=== PATIENT | female | born 1970 | race Caucasian/White ===

== ENCOUNTER 2018-09-11 18:28 | Emergency (ER) | payer BC ==
[~2018-09-11] VITALS: Ht 167.6 cm; Wt 101.4 kg
[~2018-09-11 18:28] MED LIST: CIPR500T9 PO; DOCU-300 PO; HYDR-5122 PO; METR500T1 PO
[2018-09-11 18:38] VITALS: BP 140/87
--- NOTE | 2018-09-11 18:51 | NUR ---
PATIENT AMBULATED TO BED 5
--- NOTE | 2018-09-11 19:04 | NUR ---
C/O LEFT LOWER QUADRANT PAIN X TODAY. +NAUSEA, DENIES VOMITING, FEVER OR DIARRHEA. PT STATES PAIN IS 8/10. MED HX: C SECTION X 4, DIVERTICULITIS MED: NONE
--- NOTE | 2018-09-11 19:10 | NUR ---
BEDSIDE REPORT RECEIVED FROM SAHIL GORDON. TRANSFER OF CARE AT THIS TIME.
[2018-09-11] MEDS ORDERED: MORPHINE SULFATE 4 MG/ML SYR IVP ONE ×2 (19:55→21:15)
[2018-09-11] MEDS ORDERED: NACL 0.9% 1,000 ML IV ONE (19:55)
[2018-09-11 20:11] LABS: HEMATOCRIT 44.4 % (36-48); HEMOGLOBIN 14.9 g/dL (12.0-16.0); MEAN CORPUSCULAR HEMOGLOBIN 28 pg (27-31); MEAN CORPUSCULAR HGB CONC 34 g/dL (33-37); MEAN CORPUSCULAR VOLUME 83.5 fL (80-94); PLATELET COUNT (AUTO) 203 K/uL (140-450); RED BLOOD CELL COUNT(AUTO) 5.32 MIL/uL (4.20-5.40); RED CELL DISTRIBUTION WIDTH 14.9 % (11.6-13.7); WHITE BLOOD COUNT (AUTO) 17.2 K/uL (4.8-10.8)
[2018-09-11 20:20] LABS: ANION GAP 13.6 (8-16); CARBON DIOXIDE 26.3 mmol/L (21-32); CREATININE 1.1 mg/dL (0.6-1.3); POTASSIUM 3.9 mmol/L (3.5-5.1)
[2018-09-11 20:25] LABS: ALBUMIN 3.6 g/dL (3.4-5.0); TOTAL BILIRUBIN 0.6 mg/dL (0.0-1.0)
[2018-09-11 20:35] LABS: APPEARANCE,URINE CLEAR (CLEAR); BILIRUBIN,URINE NEGATIVE (NEGATIVE); BLOOD, URINE 2+ (NEGATIVE); COLOR,URINE YELLOW (YELLOW); LEUKOCYTE ESTERASE ,URINE NEGATIVE (NEGATIVE); NITRITE, URINE NEGATIVE (NEGATIVE); PH,URINE 7.5 (5.0-9.0); UGLUCOSE NEGATIVE (NEGATIVE)
[2018-09-11 20:38] LABS: RBC,URINE 11-20 (MOD) /HPF (0-5); WBC,URINE 0-5 /HPF (0-5)
[2018-09-11 21:00] VITALS: BP 121/85
--- NOTE | 2018-09-11 21:00 | NUR ---
Pt awake and alert. VSS. No c/o pain at this. family at bedside. Will continue to monitor.
[2018-09-11 21:05] LABS: LYMPHOCYTES % (MANUAL) 11 % (20-46); MONOCYTES % (MANUAL) 5 % (5-12)
[2018-09-11] MEDS ORDERED: ONDANSETRON 4 MG/2 ML VIAL IVP ONE (21:15)
[2018-09-11] MEDS ORDERED: metroNIDAZOLE 500 MG/NS PREMIX 100 ML IV ONE (21:15)
[2018-09-11] MEDS ORDERED: LEVOFLOXACIN 500 MG/D5W PREMIX 100 ML IV ONE (21:15)
--- NOTE | 2018-09-11 22:40 | NUR ---
Patient discharged with v/s stable. Written and verbal after care instructions given and explained by . Patient alert, oriented and verbalized understanding of instructions. Ambulatory with steady gait. All questions addressed prior to discharge. ID band removed. Patient advised to follow up with PMD. Rx of Ciprofloxacin, tramadol, and flagyl given. Patient educated on indication of medication including possible reaction and side effects. Opportunity to ask questions provided and answered.
== END 2018-09-11 22:40 | disposition home or self-care (01) ==
LOC: MED 18:28
DX: K57.32 Diverticulitis of large intestine without perforation or abscess without bleeding (principal); F17.200 Nicotine dependence, unspecified, uncomplicated; Z98.890 Other specified postprocedural states; Z79.2 Long term (current) use of antibiotics; Z79.891 Long term (current) use of opiate analgesic; Z79.899 Other long term (current) drug therapy
CPT/HCPCS: 36415; 74176; 80053; 81001; 81025; 82150; 83690; 85025; 96365; 96375; 96376; 99284; J2270; J2405; J3490; J7030